=== PATIENT | male | born 1990 | race African-American/Black ===

== ENCOUNTER 2018-12-04 17:27 | Emergency (ER) | payer SELFPAY ==
--- NOTE | 2018-12-04 18:10 | ER ---
Nurse's Notes [facility] Name: Nagi Lopez Age: 28 yrs Sex: Male : 1990 Arrival Date: 12/04/2018 Time: 17:31 Bed 28 Private MD: Diagnosis: Cracked tooth Presentation: 12/04 17:41 Presenting complaint: Patient states: Dental pain that began today. PT has an ss appointment Tuesday for an extraction. Transition of care: patient was not received from another setting of care. Onset of symptoms was December 04, 2018. Risk Assessment: Do you want to hurt yourself or someone else? Patient reports no desire to harm self or others. Initial Sepsis Screen: Does the patient meet any 2 criteria? No. Patient's initial sepsis screen is negative. Does the patient have a suspected source of infection? No. Patient's initial sepsis screen is negative. Care prior to arrival: None. 17:41 Method Of Arrival: Ambulatory ss 17:41 Acuity: SALVATORE 5 ss Triage Assessment: 18:04 EENT: Reports pain in teeth. mg2 Historical: - Allergies: 17:43 No Known Allergies; ss - Home Meds: 17:43 None [Active]; ss - PMHx: 17:43 None; ss - PSHx: 17:43 None; ss - Immunization history:: Adult Immunizations up to date. - Social history:: Smoking status: Patient uses tobacco products, smokes one-half pack cigarettes per day. - Ebola Screening: : Patient denies exposure to infectious person Patient denies travel to an Ebola-affected area in the 21 days before illness onset. Screenin:03 Abuse screen: Denies threats or abuse. Denies injuries from another. Nutritional mg2 screening: No deficits noted. Tuberculosis screening: No symptoms or risk factors identified. Fall Risk None identified. Assessment: 18:02 General: Appears in no apparent distress. comfortable, Behavior is calm, cooperative. mg2 Pain: Complains of pain in teeth Pain does not radiate. Pain currently is 4 out of 10 on a pain scale. Quality of pain is described as aching, Pain began gradually. Neuro: Level of Consciousness is awake, alert, obeys commands, Oriented to person, place, time, situation. Cardiovascular: Capillary refill < 3 seconds Patient's skin is warm and dry. Respiratory: Airway is patent Respiratory effort is even, unlabored, Respiratory pattern is regular, symmetrical. GI: No signs and/or symptoms were reported involving the gastrointestinal system. : No signs and/or symptoms were reported regarding the genitourinary system. EENT: Derm: Skin is intact, is healthy with good turgor, Skin is pink, warm \T\ dry. normal. Musculoskeletal: No signs and/or symptoms reported regarding the musculoskeletal system. Vital Signs: 17:43 BP 115 / 71; Pulse 78; Resp 16; Temp 98.0(TE); Pulse Ox 97% on R/A; Weight 74.84 kg; ss Height 5 ft. 11 in. (180.34 cm); Pain 10/10; 17:43 Body Mass Index 23.01 (74.84 kg, 180.34 cm) ED Course: 17:31 Patient arrived in ED. ss 17:42 Triage completed. ss 17:43 Arm band placed on right wrist. 17:49 Matt Gallegos RN is Primary Nurse. mg2 17:51 Jonnathan Giang MD is Attending Physician. 18:04 Patient has correct armband on for positive identification. Door closed. mg2 18:04 No provider procedures requiring assistance completed. Patient did not have IV access mg2 during this emergency room visit. Administered Medications: No medications were administered Outcome: 18:09 Discharge ordered by . 18:19 Discharged to home ambulatory, with family. mg2 18:19 Condition: stable 18:19 Discharge instructions given to patient, family, Instructed on discharge instructions, follow up and referral plans. Demonstrated understanding of instructions, follow-up care. 18:19 Patient left the ED. mg2 Signatures: Vivienne Tracy RN RN Jonnathan Giang MD MD Matt Gallegos RN RN mg2
--- NOTE | 2018-12-04 18:10 | EDPHYS ---
Physician Documentation [facility] Name: Nagi Lopez Age: 28 yrs Sex: Male : 1990 Arrival Date: 12/04/2018 Time: 17:31 Bed 28 Private MD: ED Physician Jonnathan Giang HPI: 12/04 18:11 This 28 yrs old Black Male presents to ER via Ambulatory with complaints of Toothache. gs 18:11 The problem is located in the lower right third molar. Onset: The symptoms/episode gs began/occurred 2 week(s) ago. Duration: The symptoms are continuous. Associated signs and symptoms: Pertinent positives: pain, Pertinent negatives: chills, fever, redness in area, swelling. Severity of symptoms: At their worst the symptoms were moderate, in the emergency department the symptoms are unchanged. The patient has experienced similar episodes in the past, a few times. Historical: - Allergies: 17:43 No Known Allergies; ss - Home Meds: 17:43 None [Active]; ss - PMHx: 17:43 None; ss - PSHx: 17:43 None; ss - Immunization history:: Adult Immunizations up to date. - Social history:: Smoking status: Patient uses tobacco products, smokes one-half pack cigarettes per day. - Ebola Screening: : Patient denies exposure to infectious person Patient denies travel to an Ebola-affected area in the 21 days before illness onset. ROS: 18:11 All other systems are negative. gs Exam: 18:11 Head/Face: Normocephalic, atraumatic. Eyes: Pupils equal round and reactive to light, gs extra-ocular motions intact. Lids and lashes normal. Conjunctiva and sclera are non-icteric and not injected. Cornea within normal limits. Periorbital areas with no swelling, redness, or edema. Neck: Trachea midline, no thyromegaly or masses palpated, and no cervical lymphadenopathy. Supple, full range of motion without nuchal rigidity, or vertebral point tenderness. No Meningismus. Chest/axilla: Normal chest wall appearance and motion. Nontender with no deformity. No lesions are appreciated. Cardiovascular: Regular rate and rhythm with a normal S1 and S2. No gallops, murmurs, or rubs. Normal PMI, no JVD. No pulse deficits. Respiratory: Lungs have equal breath sounds bilaterally, clear to auscultation and percussion. No rales, rhonchi or wheezes noted. No increased work of breathing, no retractions or nasal flaring. Skin: Warm, dry with normal turgor. Normal color with no rashes, no lesions, and no evidence of cellulitis. 18:11 Constitutional: The patient appears alert, awake. 18:11 ENT: Dental exam: fractured teeth are noted, specifically the lower right second molar (#31), impacted 3rd molar. Vital Signs: 17:43 BP 115 / 71; Pulse 78; Resp 16; Temp 98.0(TE); Pulse Ox 97% on R/A; Weight 74.84 kg; ss Height 5 ft. 11 in. (180.34 cm); Pain 10/10; 17:43 Body Mass Index 23.01 (74.84 kg, 180.34 cm) ss MDM: 18:05 Patient medically screened. 18:11 Data reviewed: vital signs, nurses notes. ED course: pt has appt with [facility] on tue for gs extraction. Administered Medications: No medications were administered Disposition: 12/04/18 18:09 Discharged to Home. Impression: Cracked tooth. - Condition is Stable. - Discharge Instructions: Dental Pain, Form - Return To Work. - Family Work Release, Medication Reconciliation Form, Thank You Letter, Antibiotic Education, Prescription Opioid Use, Work release form form. - Follow up: Private Physician; When: 1 - 2 days; Reason: Re-evaluation by your physician. Signatures: Vivienne Tracy RN RN Jonnathan Giang MD MD Matt Gallegos RN RN mg2 Corrections: (The following items were deleted from the chart) 18:19 18:09 12/04/2018 18:09 Discharged to Home. Impression: Cracked tooth. Condition is mg2 Stable. Forms are Medication Reconciliation Form, Thank You Letter, Antibiotic Education, Prescription Opioid Use. Follow up: Private Physician; When: 1 - 2 days; Reason: Re-evaluation by your physician. gs
== END 2018-12-04 18:19 | disposition home or self-care (01) ==
LOC: ER 17:27
DX: K03.81 Cracked tooth (principal); F17.210 Nicotine dependence, cigarettes, uncomplicated
CPT/HCPCS: 99281

== ENCOUNTER 2019-03-08 16:45 | Emergency (ER) | payer SELFPAY ==
--- NOTE | 2019-03-08 17:15 | ER ---
Nurse's Notes [facility] Name: Nagi Lopez Age: 28 yrs Sex: Male : 1990 Arrival Date: 03/08/2019 Time: 16:47 Bed 12 Private MD: Diagnosis: Dental caries Presentation: 03/08 17:11 Presenting complaint: Patient states: Pain to jovani lower teeth x 3-4 days, denies fever ph N/V, has appointment w/ dentist tomorrow. Transition of care: patient was not received from another setting of care. Onset of symptoms was March 08, 2019. Risk Assessment: Do you want to hurt yourself or someone else? Patient reports no desire to harm self or others. Initial Sepsis Screen: Does the patient meet any 2 criteria? No. Patient's initial sepsis screen is negative. Does the patient have a suspected source of infection? No. Patient's initial sepsis screen is negative. Care prior to arrival: None. 17:11 Method Of Arrival: Ambulatory ph 17:11 Acuity: SALVATORE 4 ph Triage Assessment: 17:13 General: Appears in no apparent distress. uncomfortable, slender, well groomed, ph Behavior is calm, cooperative, appropriate for age, Denies fever, feeling ill. Pain: Complains of pain in mouth. EENT: Reports pain in mouth jovani lower molars. Neuro: Level of Consciousness is awake, alert, obeys commands, Oriented to person, place, time, situation. Cardiovascular: Capillary refill < 3 seconds in bilateral fingers Patient's skin is warm and dry. Respiratory: Airway is patent Respiratory effort is even, unlabored, Respiratory pattern is regular, symmetrical. GI: Patient currently denies nausea, vomiting. Derm: Skin is intact, is healthy with good turgor, Skin is pink, warm \T\ dry. Musculoskeletal: Circulation, motion, and sensation intact. Range of motion: intact in all extremities. Historical: - Allergies: 17:12 No Known Allergies; ph - Home Meds: 17:12 None [Active]; ph - PMHx: 17:12 None; ph - PSHx: 17:12 None; ph - Immunization history:: Adult Immunizations unknown. - Social history:: Smoking status: Patient uses tobacco products, denies chronic smoking, but will smoke occasionally. - Ebola Screening: : No symptoms or risks identified at this time. Screenin:13 Abuse screen: Denies threats or abuse. Denies injuries from another. Nutritional ph screening: No deficits noted. Tuberculosis screening: No symptoms or risk factors identified. Fall Risk None identified. Assessment: 17:19 General: see triage note. ph Vital Signs: 17:12 BP 105 / 63; Pulse 88; Resp 16; Temp 98.4; Pulse Ox 98% on R/A; Weight 74.84 kg; Height ph 5 ft. 11 in. (180.34 cm); Pain 7/10; 17:12 Body Mass Index 23.01 (74.84 kg, 180.34 cm) ph ED Course: 16:47 Patient arrived in ED. mr 17:03 Maikel Briceño PA is PHCP. [facility] 17:03 Sina Gonzalez MD is Attending Physician. [facility] 17:11 Bouchra Montanez, RN is Primary Nurse. ph 17:12 Triage completed. ph 17:13 Arm band placed on Patient placed in an exam room. ph 17:13 Patient has correct armband on for positive identification. Call light in reach. Door ph closed. Noise minimized. 17:19 No provider procedures requiring assistance completed. Patient did not have IV access ph during this emergency room visit. Administered Medications: No medications were administered Outcome: 17:15 Discharge ordered by . [facility] 17:20 Discharged to home ambulatory, with significant other. ph 17:20 Condition: good 17:20 Discharge instructions given to patient, Instructed on discharge instructions, follow up and referral plans. medication usage, Demonstrated understanding of instructions, follow-up care, medications, Prescriptions given X 2. 17:20 Patient left the ED. ph Signatures: Maikel Briceño PA PA jmm Rivera, Mary mr Bouchra Montanez, RN RN ph
--- NOTE | 2019-03-08 17:15 | EDPHYS ---
Physician Documentation [facility] Name: Nagi Lopez Age: 28 yrs Sex: Male : 1990 Arrival Date: 03/08/2019 Time: 16:47 Bed 12 Private MD: ED Physician Sina Gonzalez HPI: 03/08 17:11 This 28 yrs old Black Male presents to ER via Ambulatory with complaints of Toothache. jmm 17:11 The patient presents with pain. Onset: The symptoms/episode began/occurred gradually, 4 jmm day(s) ago. Duration: The symptoms are intermittent. Modifying factors: The symptoms are alleviated by nothing, the symptoms are aggravated by nothing. Associated signs and symptoms: Pertinent positives: swelling, Pertinent negatives: fever. Historical: - Allergies: 17:12 No Known Allergies; ph - Home Meds: 17:12 None [Active]; ph - PMHx: 17:12 None; ph - PSHx: 17:12 None; ph - Immunization history:: Adult Immunizations unknown. - Social history:: Smoking status: Patient uses tobacco products, denies chronic smoking, but will smoke occasionally. - Ebola Screening: : No symptoms or risks identified at this time. ROS: 17:11 Constitutional: Negative for fever, chills, and weight loss. jmm 17:11 Cardiovascular: Negative for chest pain, palpitations, and edema, Respiratory: Negative for shortness of breath, cough, wheezing, and pleuritic chest pain. 17:11 ENT: Positive for dental pain. 17:11 All other systems are negative. Exam: 17:11 Head/Face: atraumatic. Eyes: EOMI, no conjunctival erythema appreciated jmm 17:11 Chest/axilla: Normal chest wall appearance and motion. Cardiovascular: Regular rate and rhythm. No edema appreciated Respiratory: Normal respirations, no respiratory distress appreciated Abdomen/GI: Non distended, soft Back: Normal ROM Skin: General appearance color normal MS/ Extremity: Moves all extremities, no obvious deformities appreciated, no edema noted to the lower extremities Neuro: Awake and alert, normal gait Psych: Behavior is normal, Mood is normal, Patient is cooperative and pleasant 17:11 Constitutional: The patient appears in no acute distress, alert, awake. 17:11 ENT: Posterior pharynx: is normal, Dental exam: dental caries, that is moderate, specifically in the lower left second molar (#18) and lower right second molar (#31), gum swelling, not appreciated. Vital Signs: 17:12 BP 105 / 63; Pulse 88; Resp 16; Temp 98.4; Pulse Ox 98% on R/A; Weight 74.84 kg; Height ph 5 ft. 11 in. (180.34 cm); Pain 7/10; 17:12 Body Mass Index 23.01 (74.84 kg, 180.34 cm) ph MDM: 17:11 Patient medically screened. [facility] 17:14 Data reviewed: vital signs, nurses notes. Counseling: I had a detailed discussion with [facility] the patient and/or guardian regarding: the historical points, exam findings, and any diagnostic results supporting the discharge/admit diagnosis, the need for outpatient follow up, to return to the emergency department if symptoms worsen or persist or if there are any questions or concerns that arise at home. 17:48 ED course: No submandibular swelling appreciated. patient is alert and non toxic in [facility] appearance in the ED. Patient will follow up with dentist tomorrow. patient otherwise given strict return precautions. patient understood and agrees with the plan of care. . Administered Medications: No medications were administered Disposition: 03/09 08:21 Co-signature as Attending Physician, Sina Gonzalez MD I agree with the assessment and kdr plan of care. Disposition: 03/08/19 17:15 Discharged to Home. Impression: Dental caries. - Condition is Stable. - Discharge Instructions: Dental Pain. - Prescriptions for Peridex 0.12 % Mucous Membrane mouthwash - place 15 milliliter by MUCOUS MEMBRANE route 2 times per day after brushing teeth, swish in mouth for 30 seconds then spit out; 1 bottle. penicillin V potassium 500 mg Oral tablet - take 1 tablet by ORAL route every 6 hours; 40 tablet. - Medication Reconciliation Form, Thank You Letter, Antibiotic Education, Prescription Opioid Use, Work release form form. - Follow up: Private Physician; When: 1 - 2 days; Reason: Recheck today's complaints, Continuance of care, Re-evaluation by your physician. Signatures: Sina Gonzalez MD MD kdr Mickail, Joel, PA PA [facility] Bouchra Montanez RN RN ph Corrections: (The following items were deleted from the chart) 03/08 17:20 17:15 03/08/2019 17:15 Discharged to Home. Impression: Dental caries. Condition is ph Stable. Forms are Medication Reconciliation Form, Thank You Letter, Antibiotic Education, Prescription Opioid Use. Follow up: Private Physician; When: 1 - 2 days; Reason: Recheck today's complaints, Continuance of care, Re-evaluation by your physician. [email or web address]
== END 2019-03-08 17:20 | disposition home or self-care (01) ==
LOC: ER 16:45
DX: K02.9 Dental caries, unspecified (principal); Z72.0 Tobacco use
CPT/HCPCS: 99282